=== PATIENT | male | born 1960 | race Hispanic/Latino ===

== ENCOUNTER 2018-10-18 07:48 | Day surgery (SDC) | payer BC ==
[2017-02-22 14:04] VITALS: BMI 50.1
[2018-10-18] MEDS ORDERED: Propofol 10 mg/ml Inj (20 ML) ONE (09:17)
[2018-10-18] MEDS ORDERED: Sodium Chloride 0.9% 1,000 ML IV SCH (09:30)
[2018-10-18 11:22] VITALS: RESP 16
[2018-10-18 11:43] VITALS: BP 118/52; PULSE 44; TEMP 97.7; O2SAT 96
== END 2018-10-18 12:24 | disposition home or self-care (01) ==
LOC: ENDO 07:48
PROVIDERS: ATTEND Internal Medicine Gastroenterology
DX: Z12.11 Encounter for screening for malignant neoplasm of colon (principal); Z80.0 Family history of malignant neoplasm of digestive organs; D12.4 Benign neoplasm of descending colon; D12.5 Benign neoplasm of sigmoid colon; D12.3 Benign neoplasm of transverse colon; K62.1 Rectal polyp; Z86.010 Personal history of colon polyps
CPT/HCPCS: 45390; 82948; 88305; J2001; J2704; J7030; J7040